=== PATIENT | male | born 1955 | race Caucasian/White ===

== ENCOUNTER 2017-01-22 18:59 | Emergency (ER) | payer MEDICAID ==
[2017-01-22] MEDS ORDERED: Lidocaine 1% with EPINEPHrine 1:100,000 50 ML MDV ONE (19:30)
--- NOTE | 2017-01-24 20:19 | EDM.PDOC ---
ED HPI GENERAL MEDICAL PROBLEM - General Chief Complaint: Laceration Stated Complaint: LACERATION Time Seen by Provider: 01/22/17 19:30 Source of Information: Reports: Patient History Limitations: Reports: No Limitations - History of Present Illness INITIAL COMMENTS - FREE TEXT/NARRATIVE: Pt is a 61 year old male from [facility] here on fishing trip.Apparently he was cleaning the fish this evening and accidental cut the index finger and has been bleeding. The knife was a clean knife. Pt did apply pressure and come into the emergency room. He claims he is not in pain or discomfort. Able to make fist. His last tetanus was in November of 2016. no other complaints Onset: Today Onset Date: 01/22/17 Onset Time: 18:30 Location: Reports: Upper Extremity, Left Severity: Mild Improves with: Reports: None Worsens with: Reports: None Context: Reports: Lifting Associated Symptoms: Denies: Fever/Chills, Headaches, Loss of Appetite, Nausea/ Vomiting, Rash - Related Data Allergies Allergy/AdvReac Type Severity Reaction Status Date / Time No Known Allergies Allergy Verified 01/22/17 19:14 Home Meds: Home Meds Pioglitazone [Actos] 15 mg PO DAILY 01/22/17 [History] Valsartan [Diovan] 40 mg PO BID 01/22/17 [History] Past Medical History Cardiovascular History: Reports: Hypertension Endocrine/Metabolic History: Reports: Diabetes, Type II - Infectious Disease History Infectious Disease History: Reports: Chicken Pox, Measles, Mumps Social & Family History - Family History Family Medical History: Noncontributory - Tobacco Use Smoking Status *Q: Never Smoker Second Hand Smoke Exposure: No - Caffeine Use Caffeine Use: Reports: Coffee - Recreational Drug Use Recreational Drug Use: No ED ROS GENERAL - Review of Systems Review Of Systems: See Below Constitutional: Denies: Fever, Chills, Diaphoresis HEENT: Denies: Rhinitis, Sinus Problem Respiratory: Denies: Cough, Sputum Cardiovascular: Denies: Chest Pain GI/Abdominal: Denies: Nausea, Vomiting Skin: Denies: Jaundice, Bruising, Pruritis, Rash, Erythema ED EXAM, SKIN/RASH Exam: See Below Exam Limited By: No Limitations General Appearance: Alert, WD/WN, No Apparent Distress Ears: Normal External Exam, Normal Canal, Hearing Grossly Normal, Normal TMs Nose: Normal Inspection, Normal Mucosa, No Blood Throat/Mouth: Normal Inspection, Normal Lips, Normal Teeth, Normal Gums, Normal Oropharynx, Normal Voice, No Airway Compromise Head: Atraumatic, Normocephalic Neck: Normal Inspection, Supple, Non-Tender, Full Range of Motion Respiratory/Chest: No Respiratory Distress, Lungs Clear, Normal Breath Sounds, No Accessory Muscle Use, Chest Non-Tender Cardiovascular: Normal Peripheral Pulses, Regular Rate, Rhythm, No Edema, No Gallop, No JVD, No Murmur, No Rub Extremities: Normal Range of Motion, Non-Tender, No Pedal Edema, Normal Capillary Refill, Other (Left index finger: ther is 2 cm clean cut wound over the dorsal aspect of the finger over the PIP joint. The wound is gaping and bleeding. He has Good ROM of the finger.Normal neurovascular exam of the finger. ) ED SKIN PROCEDURES - Laceration/Wound Repair Left Finger Lac/Wound length In cm: 2 Appearance: Superficial Anesthetic Type: Local Local Anesthesia - Lidocaine (Xylocaine): 1% Plain Local Anesthetic Volume: 2cc Skin Prep: Providone-Iodine (Betadine) Suture Size: other (5-O) # of Sutures: 4 Suture Type: Other (monosuf) Sterile Dressing Applied: Provider Tetanus Status Addressed: Yes Complications: No Course - Vital Signs Text/Narrative:: Pt reassured that he has a laceration of the skin of the left index finger. Considering that it is over the joint, it will continue to gape and open with movement of the finger, hence recommended suturing. Pt agrees to it. Suture done under aseptic precaution and tube dressing done. Advise not to wet the wound for 2 days.Daily simple antibiotic dressing. Infection and wound care discussed. Suture removal by his primary care provider in 1 wk. Last Recorded V/S: Last Vital Signs Temp 98.5 F 01/22/17 19:10 Pulse 66 01/22/17 19:10 Resp 16 01/22/17 19:10 BP 145/63 H 01/22/17 19:10 Pulse Ox 97 01/22/17 19:10 - Orders/Labs/Meds Meds: Medications Discontinued Medications Generic Name Dose Route Start Last Admin Trade Name Freq PRN Reason Stop Dose Admin Lidocaine/Epinephrine 50 ml 01/22/17 19:30 Xylocaine 1% With Epinephrine 1:100,000 .ROUTE 01/22/17 19:31 .STK-MED ONE Departure - Departure Time of Disposition: 20:15 Disposition: Home, Self-Care 01 Condition: Fair Clinical Impression: Finger laceration - Discharge Information Instructions: Laceration Care, Adult, [id number], Stitches, [place], or Adhesive Wound Closure, [id number] Referrals: PCP,None [Primary Care Provider] - Forms: ED Department Discharge Additional Instructions: Keep dressing applied in place for next 2 days, then remove, and apply thin strip of antibiotic ointment, and then may leave open to air. Be sure to watch affected area for any signs or symptoms of infection present including: increased redness, increased swelling, increased pain or tenderness to touch, foul drainage and/or fever present. Should any of these symptoms occur, return to be seen right away. Follow up in clinic in 7 days for suture removal. Call with any questions. - Problem List & Annotations (1) Finger laceration SNOMED Code(s): 269230708 Code(s): S61.219A - LACERATION W/O FB OF UNSP FINGER W/O DAMAGE TO NAIL, INIT Status: Acute - Problem List Review Problem List Initiated/Reviewed/Updated: Yes - Assessment/Plan Assessment:: left index finger laceration Plan: Pt reassured that he has a laceration of the skin of the left index finger. Considering that it is over the joint, it will continue to gape and open with movement of the finger, hence recommended suturing. Pt agrees to it. Suture done under aseptic precaution and tube dressing done. Advise not to wet the wound for 2 days.Daily simple antibiotic dressing. Infection and wound care discussed. Suture removal by his primary care provider in 1 wk.
== END 2017-01-22 20:00 | disposition home or self-care (01) ==
LOC: LB.ED 18:59
DX: S61.211A Laceration without foreign body of left index finger without damage to nail, initial encounter (principal); W45.8XXA Other foreign body or object entering through skin, initial encounter; I10 Essential (primary) hypertension; E11.9 Type 2 diabetes mellitus without complications; Y93.89 Activity, other specified
CPT/HCPCS: 12001; 99282; 99282-25